=== PATIENT | male | born 1965 | race Caucasian/White ===

== ENCOUNTER 2022-02-18 22:13 | Emergency (ER) | payer OTHER, SELFPAY ==
[2022-02-18 22:19] VITALS: BP 139/81; PULSE 86; RESP 16; TEMP 36.3; O2SAT 95
[2022-02-18 23:27] LABS: Basophils % 0.2 %; Eosinophils % 0.5 %; Hematocrit 46.1 % (42.0-52.0); Hemoglobin 15.7 g/dL (11.7-16.6); Lymphocytes # 1.8 10^3/uL (0.8-4.8); Lymphocytes % 41.3 %; Mean Corpuscular HGB Conc 34.1 g/dL (30.0-36.0); Mean Corpuscular Hemoglobin 29.8 pg (28.0-34.0); Mean Corpuscular Volume 87.6 fl (80-94); Mean Platelet Volume 10.6 fL (7.4-10.4); Monocytes # 0.1 10^3/uL (0.2-0.9); Monocytes % 1.4 %; Neutrophils # 2.39 10^3/uL (1.8-7.7); Neutrophils % 56.1 %; Nucleated Red Blood Cells % 0 %; Platelet Count 242 10^3/cmm (130-400); Red Blood Count 5.26 10^6/uL (4.1-5.3); Red Cell Distribution Width 13.4 % (12.1-15.1); White Blood Count 4.3 10^3/uL (4.0-10.0)
[2022-02-18 23:39] LABS: INR 0.98 (0.8-1.2)
[2022-02-18 23:40] LABS: Partial Thromboplastin Time 29.9 SECONDS (23.9-36.7)
[2022-02-18 23:43] LABS: D Dimer 0.41 ug/mIFEU (0-0.59)
[2022-02-18 23:46] LABS: Alanine Aminotransferase 18 U/L (0-41); Albumin Level 4.4 g/dL (3.5-5.2); Alkaline Phosphatase 76 IU/L (40-130); Anion Gap 17.1 (5-19); Aspartate Amino Transferase 22 U/L (0-40); Blood Urea Nitrogen 18 mg/dL (6-20); Calcium 9.1 mg/dL (8.5-10.5); Carbon Dioxide 24 mmol/L (22-29); Chloride 104 mmol/L (98-107); Creatine Phosphokinase 125 U/L (39-308); Fibrinogen 288 mg/dL (174-498); Globulin 3.1 g/dL (1.3-4.6); Glomerular Filtration Rate 77.6 mL/min (90-130); Glucose 93 mg/dL (65-115); Osmolality Calculated 294 mOsm/kg (285-295); Potassium 4.1 mmol/L (3.5-5.1); Sodium 141 mmol/L (136-145); Total Bilirubin 0.3 mg/dL (0.15-1.2); Total Protein 7.5 g/dL (6.6-8.7)
[2022-02-19 00:07] VITALS: RESP 18
[2022-02-19] MEDS: morphine 4 mg/mL SDV 1 mL IVP (00:07)
[2022-02-19] MEDS: sodium chloride 0.9% 1,000 ML 999 ML IV (00:07)
[2022-02-19] MEDS: diphenhydrAMINE 50 mg/mL SDV 1mL IVP (00:07)
[2022-02-19] MEDS: ondansetron 2 mg/ML SDV 2 mL 4 MG IVP (00:07)
[2022-02-19 01:49] VITALS: BP 114/73; PULSE 86; RESP 18; O2SAT 95
[2022-02-19] MEDS: oxyCODONE-APAP 5-325 mg Tablet 1 TAB PO (01:49)
--- NOTE | 2022-02-19 03:11 | ED_ITS ---
HPI - Animal Bite General: Chief Complaint: Animal Bite Stated Complaint: Snake bite right foot, swollen Time Seen by Provider: 02/18/22 23:34 Source: patient and family Mode of arrival: ambulatory History of Present Illness: 56-year-old male on vacation with his family. They are staying in a cabin. He was bitten by a snake of unknown species on the right third toe. He has significant pain and swelling tracking up to his ankle and just above. He is nauseated. No vomiting. Some redness is present. No streaking. He can wiggle his toes without pain. complaint: animal bite Onset (ago): minute(s) Animal: snake Description of animal: unknown animal Mechanism: bite Location - Extremities: Right: foot Context: other Associated symptoms: Reports erythema; Deny bleeding, chills, cough, diaphoresis, fever(s), short of breath, weakness or wound drainage Review of Systems Const: Denies: fever(s), chills or diaphoresis Card: Denies: chest pain Resp: Denies: dyspnea GI: Reports: nausea; Denies: vomiting Musc: Reports: extremity pain and extremity swelling Physical Exam Const: GENERAL APPEARANCE: cooperative; not frail appearing HENMT: COMMON NORMALS: normocephalic and atraumatic HEAD & SCALP: normocephalic and atraumatic Eye: COMMON NORMALS: Equal, round and reactive pupils present and EOMs intact bilaterally PUPIL: Yes Equal, round and reactive pupils present Chest: CHEST: Yes Symmetrical chest wall rise Resp: COMMON NORMALS: normal respiratory effort, No retractions, No use of accessory muscles and clear to auscultation bilaterally AUSCULTATION: clear to auscultation bilaterally Cardio: COMMON NORMALS: regular rate and regular rhythm RATE: regular rate RHYTHM: regular rhythm GI: COMMON NORMALS: Normal to inspection, nondistended, normoactive bowel sounds present Extremity: NARRATIVE EXTREMITY EXAM: Exam of the right lower extremity reveals puncture wounds of the right third toe. There is redness and swelling tracking proximally to the distal third of the right leg. Most pronounced over the lateral compartment. There is tenderness over the lateral compartment, not so much over the anterior posterior leg. No tightness. No evidence of compartment syndrome. Neuro: [place] COMA SCALE: document GCS findings [place] coma scale eye opening: Spontaneous [place] coma scale verbal response: Orientated [place] coma scale motor response: Obey commands [place] coma scale total score: 15 Psych: COMMON NORMALS: mental status grossly normal Skin: GENERAL SKIN EXAM: erythema Course Vital Signs: Vital signs: Vital Signs Temperature 97.4 F L 02/18/22 22:19 Pulse Rate 80 02/19/22 06:31 Respiratory Rate 18 02/19/22 06:31 Blood Pressure 135/86 02/19/22 06:31 Pulse Oximetry 96 02/19/22 06:31 MDM - Animal Bite Medical Decision Making There has been no significant progression of swelling or pain or redness since shortly after the patient's arrival. He vomited 1 time. This improved with Zofran. He is received pain medication, Solu-Medrol, and Benadryl. He is resting comfortably. CBC is normal. His CMP is normal. Coagulation studies are normal as well. Since only 1 joint is involved, and his swelling is not progressive, we elected not to give CroFab. We will repeat coagulation studies in a few hours. Patient has been monitored closely every 30 minutes to 1 hour over his ER stay. There has been no further progression of swelling, warmth, or pain. No evidence of compartment syndrome coagulation studies are repeated, and fibrinogen remains normal, platelet count remains normal, INR remains stable. The patient's had no more nausea or vomiting. He will be kept in observation for a total of 12 hours. He is given 1 more dose of Solu-Medrol. Lab Data : 02/19/22 03:54 02/18/22 23:15 Laboratory Results WBC 11.4 10^3/uL (4.0-10.0) H 02/19/22 03:54 RBC 4.99 10^6/uL (4.1-5.3) 02/19/22 03:54 Hgb 15.1 g/dL (11.7-16.6) 02/19/22 03:54 Hct 44.0 % (42.0-52.0) 02/19/22 03:54 MCV 88.2 fl (80-94) 02/19/22 03:54 MCH 30.3 pg (28.0-34.0) 02/19/22 03:54 MCHC 34.3 g/dL (30.0-36.0) 02/19/22 03:54 RDW 13.5 % (12.1-15.1) 02/19/22 03:54 Plt Count 193 10^3/cmm (130-400) 02/19/22 03:54 MPV 10.5 fL (7.4-10.4) H 02/19/22 03:54 Neut % (Auto) 92.8 % 02/19/22 03:54 Lymph % (Auto) 3.7 % 02/19/22 03:54 [place] % (Auto) 2.8 % 02/19/22 03:54 Eos % (Auto) 0.0 % 02/19/22 03:54 Baso % (Auto) 0.3 % 02/19/22 03:54 Neut # (Auto) 10.59 10^3/uL (1.8-7.7) H 02/19/22 03:54 Lymph # (Auto) 0.4 10^3/uL (0.8-4.8) L 02/19/22 03:54 [place] # (Auto) 0.3 10^3/uL (0.2-0.9) 02/19/22 03:54 Eos # (Auto) 0.0 10^3/uL (0.0-0.8) 02/19/22 03:54 Baso # (Auto) 0.0 10^3/uL (0.0-0.1) 02/19/22 03:54 Nucleated RBC % (auto) 0 % 02/19/22 03:54 Nucleated RBCs # 0.0 /100WBC 02/19/22 03:54 PT 14.30 SECONDS (12.1-14.9) 02/19/22 03:54 INR 1.08 (0.8-1.2) 02/19/22 03:54 APTT 29.9 SECONDS (23.9-36.7) 02/18/22 23:15 Fibrinogen 283 mg/dL (174-498) 02/19/22 03:54 Fibrin Degrad Products Pos, 10-40 ug/mL (NEG) H 02/19/22 03:54 D-Dimer 0.87 ug/mIFEU (0-0.59) H 02/19/22 03:54 Sodium 141 mmol/L (136-145) 02/18/22 23:15 Potassium 4.1 mmol/L (3.5-5.1) 02/18/22 23:15 Chloride 104 mmol/L (98-107) 02/18/22 23:15 Carbon Dioxide 24 mmol/L (22-29) 02/18/22 23:15 Anion Gap 17.1 (5-19) 02/18/22 23:15 BUN 18 mg/dL (6-20) 02/18/22 23:15 Creatinine 1.0 mg/dL (0.7-1.2) 02/18/22 23:15 GFR Calculation 77.6 mL/min (90-130) L 02/18/22 23:15 Glucose 93 mg/dL (65-115) 02/18/22 23:15 Calculated Osmolality 294 mOsm/kg (285-295) 02/18/22 23:15 Calcium 9.1 mg/dL (8.5-10.5) 02/18/22 23:15 Phosphorus 4.0 mg/dL (2.5-4.5) 02/18/22 23:15 Total Bilirubin 0.3 mg/dL (0.15-1.2) 02/18/22 23:15 AST 22 U/L (0-40) 02/18/22 23:15 ALT 18 U/L (0-41) 02/18/22 23:15 Alkaline Phosphatase 76 IU/L (40-130) 02/18/22 23:15 Creatine Kinase 125 U/L (39-308) 02/18/22 23:15 C-Reactive Protein 3.0 mg/L (0.0-4.9) 02/18/22 23:15 Total Protein 7.5 g/dL (6.6-8.7) 02/18/22 23:15 Albumin 4.4 g/dL (3.5-5.2) 02/18/22 23:15 Globulin 3.1 g/dL (1.3-4.6) 02/18/22 23:15 Discharge Plan Discharge Patient Disposition: Home Clinical Impression: Snake bite Qualifiers: Encounter type: initial encounter Qualified Code(s): W59.11XA - Bitten by nonvenomous snake, initial encounter Condition: Stable Prescriptions: New Percocet 7.5-325 mg tablet 1 tab PO Q6H PRN (Reason: pain) Qty: 10 0RF Medrol (Ady) 4 mg tablets,dose pack See Rx Instructions .ROUTE .COMPLEX Qty: 21 0RF Rx Instructions: orally per package directions Discharge Orders: Discharge ED (Routine); Ordered 02/19/22 Ordered By: Isauro Dugan Referrals: Jerrell Mckenna MD [Primary Care Provider] - Discharge Diet: Advance as tolerated Discharge Activity: Limit activity as instructed Patient Instructions: Snake Bite (ED), Opioid Safety Activity Restrictions/Additional Instructions: Elevate your leg above your heart for the next 24 hours. You may ice for pain and swelling. Pain medication as needed. Take the methylprednisolone as direc yamileth. You may use Benadryl for itching. Limit your weightbearing for the next 48 hours. Return for growing swelling, redness, pain or fever despite treatment. Return also for shortness of breath, any signs of bleeding, or any other concerns. Coding Level of Care Code ED [employer] Systems Administrator for Augustin Fwd Exam Comprehensive
--- NOTE | 2022-02-19 04:01 | PC.NURSE ---
patients repeats coags drawn and sent to lab with no difficulties. patients rle with no new swelling noted upon last check. patient in no obivous distress. patient on caridac monitor. at bedside.
[2022-02-19 04:02] LABS: Basophils % 0.3 %; Hemoglobin 15.1 g/dL (11.7-16.6); Lymphocytes # 0.4 10^3/uL (0.8-4.8); Lymphocytes % 3.7 %; Mean Corpuscular HGB Conc 34.3 g/dL (30.0-36.0); Mean Corpuscular Hemoglobin 30.3 pg (28.0-34.0); Mean Corpuscular Volume 88.2 fl (80-94); Mean Platelet Volume 10.5 fL (7.4-10.4); Monocytes # 0.3 10^3/uL (0.2-0.9); Monocytes % 2.8 %; Neutrophils # 10.59 10^3/uL (1.8-7.7); Neutrophils % 92.8 %; Nucleated Red Blood Cells % 0 %; Platelet Count 193 10^3/cmm (130-400); Red Blood Count 4.99 10^6/uL (4.1-5.3); Red Cell Distribution Width 13.5 % (12.1-15.1); White Blood Count 11.4 10^3/uL (4.0-10.0)
[2022-02-19 04:22] LABS: INR 1.08 (0.8-1.2)
[2022-02-19 04:23] LABS: Fibrinogen 283 mg/dL (174-498)
[2022-02-19 04:26] LABS: D Dimer 0.87 ug/mIFEU (0-0.59)
[2022-02-19 06:31] VITALS: BP 135/86; PULSE 80; RESP 18; O2SAT 96
== END 2022-02-19 10:30 | disposition home or self-care (01) ==
PROVIDERS: Emergency Provider Emergency Medicine; PCP Urology
DX: T63.001A Toxic effect of unspecified snake venom, accidental (unintentional), initial encounter (principal)
CPT/HCPCS: 80053; 82550; 84100; 85025; 85362; 85378; 85384; 85610; 85730; 86140; 96361; 96374; 96375; 96376; 99284; J1200; J2270; J2405; J2930; J7030

== ENCOUNTER 2024-01-26 21:55 | Emergency (ER) | payer BC, SELFPAY ==
[2024-01-26 22:00] VITALS: BP 118/75; PULSE 80; RESP 18; TEMP 36.7; O2SAT 96; BMI 25.7
[2024-01-26 22:05] VITALS: BP 141/70; PULSE 79; RESP 16; O2SAT 95
--- NOTE | 2024-01-26 22:07 | XRR_ITS ---
PROCEDURE INFORMATION: Exam: XR Right Wrist Exam date and time: 01/26/2024 10:39 PM Age: 58 years old Clinical indication: Injury or trauma; Fall; Patient HX: RT wrist pain post foosh TECHNIQUE: Imaging protocol: Radiologic exam of the right wrist. Views: 3 or more views. COMPARISON: No relevant prior studies available. FINDINGS: Bones/joints: Mildly displaced distal radial and ulnar styloid fractures. Grossly normal alignment. Soft tissues: Diffuse soft tissue swelling. XR/XR wrist RT min 3V* [id number] IMPRESSION: Mildly displaced distal radial and ulnar styloid fractures.
--- NOTE | 2024-01-26 22:52 | W.ED.EXTPRO ---
HPI - Extremity Problem General: Chief complaint: Extremity Injury, Upper Stated complaint: Rt Arm Injury Time Seen by Provider: 01/26/24 22:07 Source: patient Mode of arrival: ambulatory Limitations: no limitations History of Present Illness: 58-year-old male states he had been horse around he fell and landed on his right wrist. He states happened at night and felt a crunch in his right wrist and believes he may have fractured he does have pain he rates it a 7 out of 10 it is improved with rest mainly pain with movement denies any other injuries denies any elbow pain denies hitting his head Associated symptoms: Deny chest pain, fever(s) or rash Review of Systems Const: Denies: fever(s), chills, body aches or change in appetite ENMT: Denies: throat pain or dental pain Card: Denies: chest pain Resp: Denies: dyspnea GI: Denies: abdominal pain, nausea, vomiting or diarrhea Musc: Reports: extremity pain; Denies: neck pain or back pain Skin/Breast: Denies: rash Neuro: Denies: headache(s) Physical Exam Const: COMMON NORMALS: no acute distress, patient oriented x3 and healthy appearing HENMT: COMMON NORMALS: normocephalic and atraumatic HEAD & SCALP: normocephalic and atraumatic Neck/C-Spine: COMMON NORMALS: full ROM and supple Chest: COMMONS NORMALS: normal inspection of the chest Resp: COMMON NORMALS: normal respiratory effort Extremity: COMMON NORMALS: full ROM NARRATIVE EXTREMITY EXAM: Tenderness over right wrist no obvious deformity distal pulses sensation intact Neuro: COMMON NORMALS: patient oriented x3, moves all extremities and no focal motor deficits Psych: COMMON NORMALS: mental status grossly normal, Normal thought process present and cooperative THOUGHT PROCESS: Normal thought process present Skin: COMMON NORMALS: no rashes or lesions noted and no wounds GENERAL SKIN EXAM: no rashes or lesions noted Course Vital Signs: Vital signs: Vital Signs Temperature 98.1 F 01/26/24 22:00 Pulse Rate 79 01/26/24 22:05 Respiratory Rate 16 01/26/24 22:05 Blood Pressure 141/70 01/26/24 22:05 Pulse Oximetry 95 01/26/24 22:05 Oxygen Delivery Me thod Room Air 01/26/24 22:05 MDM - Extremity (Nontraumatic) Medical Decision Making Patient presents here with a distal radius fracture from a fall will place in a sugar-tong he lives in [place] and is going to follow-up with orthopedics there. XR interpretation done by ED provider, pending radiology final review ED provider radiology interpretation(s): X-ray right wrist distal radius fracture Discharge Plan Discharge Condition: Stable Prescriptions: No Action Percocet 7.5-325 mg tablet 1 tab PO Q6H PRN (Reason: pain) Qty: 10 0RF Medrol (Ady) 4 mg tablets,dose pack See Rx Instructions .ROUTE .COMPLEX Qty: 21 0RF Rx Instructions: orally per package directions Coding Level of Care Code ED Commercial Green Building Architect for Augustin Ruff
[2024-01-26] MEDS: HYDROcodone-acetaminophen 5-325 mg Tablet 1 TAB PO (23:07)
[2024-01-26 23:27] VITALS: BP 134/72; PULSE 82; RESP 16; O2SAT 97
== END 2024-01-26 23:25 | disposition home or self-care (01) ==
PROVIDERS: Emergency Provider Emergency Medicine
DX: S52.501A Unspecified fracture of the lower end of right radius, initial encounter for closed fracture (principal); W19.XXXA Unspecified fall, initial encounter
CPT/HCPCS: 29125; 73110; 99283